=== PATIENT | male | born 1960 | race Caucasian/White ===

== ENCOUNTER 2020-05-25 10:32 | Emergency (ER) | payer OTHER, MEDICARE ==
[~2020-05-25] VITALS: Ht 172.7 cm; Wt 68.0 kg
[~2020-05-25 10:32] MED LIST: ALBIPROI INH; ASPI81EC PO; FLUSAL2505 IH; HYDACE5; HYDCOR2.5B TOP; HYDR25SUP PR; LIDO5TO TOP; LUTEIN PO; MUPI2TO TOP; PRED20 PO; TIOT18 INH; [UNRECOGNIZED DRUG - OTHER] PO
[2020-05-25] MEDS ORDERED: HUMIRA PEN40 MG/0.2 (10:45)
[2020-05-25] MEDS ORDERED: TUDORZA PRESS400 MC1 (10:46)
[2020-05-25] MEDS ORDERED: NEURONTIN300 MG PO (10:46)
== END 2020-05-25 11:17 | disposition home or self-care (01) ==
LOC: ER 10:32
DX: I83.811 Varicose veins of right lower extremity with pain (principal); Z88.0 Allergy status to penicillin; Z79.52 Long term (current) use of systemic steroids; Z79.899 Other long term (current) drug therapy
CPT/HCPCS: 93971; 99284-25

== ENCOUNTER 2020-06-19 10:28 | Emergency (ER) | payer OTHER, MEDICARE ==
[~2020-06-19] VITALS: Ht 177.8 cm; Wt 68.0 kg
[~2020-06-19 10:28] MED LIST changes: +HUMIRA PEN40 MG/0.2; +NEURONTIN300 MG PO; +TUDORZA PRESS400 MC1
[2020-06-19 11:17] LABS: BASOPHILS PERCENT AUTO 1 % (0-2); EOSINOPHILS PERCENT AUTO 2 % (0-6); Hematocrit 41.7 % (37.0-53.0); Hemoglobin 14.4 g/dL (13.5-17.5); IMMATURE GRAN ABSOLUTE AUTO 0.06 K/mm3 (0.00-0.10); IMMATURE GRAN PERCENT AUTO 1 % (0-1); LYMPHOCYTES ABSOLUTE AUTO 2.41 K/mm3 (0.84-5.20); LYMPHOCYTES PERCENT AUTO 27 % (21-46); MONOCYTES ABSOLUTE AUTO 1.41 K/mm3 (0.16-1.47); MONOCYTES PERCENT AUTO 16 % (4-13); Mean Corpuscular HGB 36.5 pg (26.0-34.0); Mean Corpuscular HGB Conc 34.5 g/dL (31.5-36.5); Mean Corpuscular Volume 106 fL (80-100); Mean Platelet Volume 8.5 fL (9.1-12.4); NEUTROPHILS ABSOLUTE AUTO 4.76 K/mm3 (1.96-9.15); NEUTROPHILS PERCENT AUTO 53 % (41-73); NRBC Auto 1.1 /100 WBC (0.0-0.2); Platelet Count 372 K/mm3 (150-400); RDW Coefficient Variation 14.1 % (11.7-14.2); RDW Standard Deviation 55.1 fL (35.1-46.3); Red Blood Cell Count 3.95 M/mm3 (4.30-5.90); White Blood Cell Count 8.94 K/mm3 (4.00-11.30)
[2020-06-19 11:28] LABS: International Normalized Ratio 1.03
[2020-06-19 11:38] LABS: Troponin I <0.015 ng/mL (0.000-0.040)
[2020-06-19 11:58] LABS: Alanine Aminotransfer (ALT/SGP 50 U/L (12-78); Albumin, Blood 2.8 g/dL (3.4-5.0); Albumin/Globulin Ratio 0.6 (0.8-1.8); Alk Phos 131 U/L (50-136); Anion Gap 8 mmol/L (6-16); Aspartate Aminotrans (AST/SGOT 102 U/L (12-37); Bilirubin, Total 1.2 mg/dL (0.1-1.0); Blood Urea Nitrogen 7 mg/dL (8-24); Bun/Creatinine Ratio 11.5 (12.0-20.0); CO2, Blood 24 mmol/L (21-32); Calcium, Blood 8.2 mg/dL (8.5-10.1); Chloride, Blood 104 mmol/L (98-108); Creatinine, Blood 0.61 mg/dL (0.60-1.20); Globulin, Blood 4.5 g/dL (2.2-4.0); Glomerular Filtration Rate >60 (60-); Glucose, Blood 97 mg/dL (70-99); Potassium, Blood 4.2 mmol/L (3.5-5.5); Sodium, Blood 136 mmol/L (136-145); Total Protein, Blood 7.3 g/dL (6.4-8.2)
[2020-06-19] MEDS ORDERED: XARELTO15 MG PO (15:58)
== END 2020-06-19 16:23 | disposition home or self-care (01) ==
LOC: ER 10:28
PROVIDERS: Emergency Medicine
DX: I26.99 Other pulmonary embolism without acute cor pulmonale (principal); Z88.0 Allergy status to penicillin; Z79.899 Other long term (current) drug therapy
CPT/HCPCS: 36415; 80053; 83880; 84484; 85025; 85610; 85730; 93005; 93010; 99283-25; A9270

== ENCOUNTER 2020-09-21 09:58 | Emergency (ER) | payer OTHER, MEDICARE ==
[~2020-09-21] VITALS: Ht 172.7 cm; Wt 72.6 kg
[~2020-09-21 09:58] MED LIST changes: +XARELTO15 MG PO
[2020-09-21] MEDS ORDERED: XARELTO20 MG PO (10:20)
[2020-09-21 11:40] LABS: BASOPHILS ABSOLUTE AUTO 0.12 K/mm3 (0.00-0.23); BASOPHILS PERCENT AUTO 2 % (0-2); EOSINOPHILS ABSOLUTE AUTO 0.18 K/mm3 (0.00-0.68); EOSINOPHILS PERCENT AUTO 3 % (0-6); Hematocrit 39.5 % (37.0-53.0); Hemoglobin 13.5 g/dL (13.5-17.5); IMMATURE GRAN ABSOLUTE AUTO 0.05 K/mm3 (0.00-0.10); IMMATURE GRAN PERCENT AUTO 1 % (0-1); LYMPHOCYTES ABSOLUTE AUTO 1.67 K/mm3 (0.84-5.20); LYMPHOCYTES PERCENT AUTO 23 % (21-46); MONOCYTES ABSOLUTE AUTO 1.71 K/mm3 (0.16-1.47); MONOCYTES PERCENT AUTO 23 % (4-13); Mean Corpuscular HGB Conc 34.2 g/dL (31.5-36.5); Mean Corpuscular Volume 108 fL (80-100); Mean Platelet Volume 8.4 fL (9.1-12.4); NEUTROPHILS ABSOLUTE AUTO 3.58 K/mm3 (1.96-9.15); NEUTROPHILS PERCENT AUTO 49 % (41-73); Platelet Count 625 K/mm3 (150-400); RDW Coefficient Variation 12.9 % (11.7-14.2); RDW Standard Deviation 51.5 fL (35.1-46.3); Red Blood Cell Count 3.65 M/mm3 (4.30-5.90); White Blood Cell Count 7.31 K/mm3 (4.00-11.30)
[2020-09-21 12:00] LABS: Alanine Aminotransfer (ALT/SGP 18 U/L (12-78); Albumin, Blood 2.9 g/dL (3.4-5.0); Albumin/Globulin Ratio 0.5 (0.8-1.8); Alk Phos 106 U/L (50-136); Anion Gap 3 mmol/L (6-16); Aspartate Aminotrans (AST/SGOT 36 U/L (12-37); Bilirubin, Total 0.4 mg/dL (0.1-1.0); Blood Urea Nitrogen 9 mg/dL (8-24); Bun/Creatinine Ratio 14.7 (12.0-20.0); CO2, Blood 29 mmol/L (21-32); Calcium, Blood 9.2 mg/dL (8.5-10.1); Chloride, Blood 109 mmol/L (98-108); Creatinine, Blood 0.61 mg/dL (0.60-1.20); Globulin, Blood 5.6 g/dL (2.2-4.0); Glomerular Filtration Rate >60 (60-); Glucose, Blood 105 mg/dL (70-99); Potassium, Blood 4.2 mmol/L (3.5-5.5); Sodium, Blood 141 mmol/L (136-145); Total Protein, Blood 8.5 g/dL (6.4-8.2)
[2020-09-21] MEDS ORDERED: Cleocin HCl300 MG PO (12:03)
[2020-09-21] MEDS ORDERED: Norco 5-325 Ta1 EACH PO (12:05)
== END 2020-09-21 12:10 | disposition home or self-care (01) ==
LOC: ER 09:58
PROVIDERS: Physician Assistant
DX: L03.116 Cellulitis of left lower limb (principal); M79.662 Pain in left lower leg; Z79.01 Long term (current) use of anticoagulants; Z79.899 Other long term (current) drug therapy; Z88.0 Allergy status to penicillin; Z86.718 Personal history of other venous thrombosis and embolism
CPT/HCPCS: 36415; 80053; 83605; 85025; 93971; 99284-25

== ENCOUNTER → 2025-01-04 | Outpatient (CLI) | payer OTHER, MEDICARE ==
[~2025-01-04] MED LIST changes: +Cleocin HCl300 MG PO; +Norco 5-325 Ta1 EACH PO; +XARELTO20 MG PO
[2025-01-07 20:00] LABS: PANCREATIC ELASTASE,FECAL >800 ug/g (>=100)
== END | disposition home or self-care (01) ==
LOC: LAB 18:33 → LAB SHORT 18:33
PROVIDERS: Nurse Practitioner
DX: K52.9 Noninfective gastroenteritis and colitis, unspecified (principal); R10.10 Upper abdominal pain, unspecified; R79.89 Other specified abnormal findings of blood chemistry
CPT/HCPCS: 82653

== ENCOUNTER 2025-02-09 13:48 | Emergency (ER) | payer OTHER, MEDICARE ==
[~2025-02-09] VITALS: Ht 172.7 cm; Wt 67.6 kg
[2025-02-09 15:19] VITALS: BP 139/80
[2025-02-09] MEDS ORDERED: TIZA4 PO (16:20)
== END 2025-02-09 16:23 | disposition home or self-care (01) ==
LOC: ER 13:48
DX: M25.551 Pain in right hip (principal); Z88.0 Allergy status to penicillin; Z79.01 Long term (current) use of anticoagulants; Z79.899 Other long term (current) drug therapy
CPT/HCPCS: 73502; 99283-25; A9270